=== PATIENT | female | born 1990 | race Caucasian/White ===

== ENCOUNTER 2018-02-15 01:27 | Inpatient (IN) | payer BC, OTHER ==
[~2018-02-15] VITALS: Ht 157.5 cm; Wt 55.8 kg
[2018-02-15] VITALS (37 sets, daily range): BP systolic 96–197; BP diastolic 55–91
[2018-02-15] MEDS ORDERED: D5 LR IV SOLUTION 1,000 ML IV ONE (01:49)
[2018-02-15] MEDS ORDERED: AMPICILLIN 2000 MG INJECTION (IM/IV) ONE (01:49)
[2018-02-15] MEDS ORDERED: NS (IVPB) 50 ML ONE (01:50)
[2018-02-15] MEDS: D5 LR IV SOLUTION 1,000 ML IV SCH ×2 (02:20→09:30)
[2018-02-15] MEDS ORDERED: D5 LR IV SOLUTION 1,000 ML IV SCH ×2 (02:28)
[2018-02-15] MEDS ORDERED: AMPICILLIN INJECTION 2,000 MG in NS (IVPB) 50 ML IV ONE (02:30)
[2018-02-15 02:39] LABS: BASOPHILS % (AUTO) 0 % (0-10); EOSINOPHILS # (AUTO) 0.2 10^3/uL (0.0-0.3); EOSINOPHILS % (AUTO) 2 % (0-10); HEMATOCRIT 36 % (35-52); HEMOGLOBIN 12.3 G/DL (11.5-16.0); LYMPHOCYTES # (AUTO) 2.9 X 10^3 (1.0-4.0); LYMPHOCYTES % (AUTO) 20 % (12-44); MEAN CORPUSCULAR HEMOGLOBIN 30 PG (25-34); MEAN CORPUSCULAR HGB CONC 34 G/DL (32-36); MEAN CORPUSCULAR VOLUME 88 FL (80-99); MEAN PLATELET VOLUME 11.6 FL (7.4-10.4); MONOCYTES # (AUTO) 1.5 X 10^3 (0.0-1.0); MONOCYTES % (AUTO) 10 % (0-12); NEUTROPHILS # (AUTO) 9.8 X 10^3 (1.8-7.8); NEUTROPHILS % (AUTO) 68 % (42-75); PLATELET COUNT 205 10^3/uL (130-400); RED BLOOD COUNT 4.13 10^6/uL (4.35-5.85); RED CELL DISTRIBUTION WIDTH 13.7 % (10.0-14.5); WHITE BLOOD COUNT 14.4 10^3/uL (4.3-11.0)
[2018-02-15] MEDS ORDERED: AMPICILLIN FOR IV USE 1,000 MG in NS (IVPB) 50 ML IV SCH (04:00)
[2018-02-15] MEDS ORDERED: CATHETER FLUSH 10 ML SYR IV SCH ×3 (06:00)
[2018-02-15] MEDS ORDERED: OXYTOCIN/NORMAL SALINE 500 ML IV ONE (06:05)
[2018-02-15] MEDS ORDERED: OXYTOCIN/NORMAL SALINE 500 ML IV SCH ×2 (06:45→14:18)
[2018-02-15] MEDS ORDERED: LACTATED RINGERS 1,000 ML IV ONE (07:27)
--- NOTE | 2018-02-15 07:33 | History & Physical ---
History and Physical Date Seen by Provider: Feb 15, 2018 Time Seen by Provider: 07:30 This patient is a 27-year-old A1 white female with an EDC of 831 18 37-5/ 7 weeks gestation. She was seen in clinic yesterday found cervix 47 Ms. dilated 90 percent effaced and +1 station. She back in [place] last evening around 11 p.m. She decided to labor and delivery about 1 a.m. She was found to be 5 cm and [place] with regularity. She denies rupture membranes or bleeding history is significant for having strep in a urine culture during this . She was started on ampicillin for GBS prophylaxis. Patient now admitted for labor management. Allergies are none Medications are vitamins and metro-gel acne Medical social and surgical histories are per the antepartum record HEENT exam is normal Neck is supple no lymphadenopathy no thyromegaly Abdomen is gravid soft nontender nondistended Extreme show clubbing cyanosis there is no Homans sign. Pelvic exam now shows a cervix 6 cm dilated 90 percent effaced +1 station vertex presentation with intact membranes amniotomy is performed with release of a small amount of clear fluid monitor shows occasional contractions and a normal heart rate pattern Laboratory Tests 02/15/18 02:15 Assessment and plan 37-5/7 weeks' gestation in active labor. Patient is admitted antibiotics are initiated for GBS prophylaxis. Anticipation is for vaginal delivery. 37 5/7 weeks' gestation in labor Allergies and Home Medications Allergies Coded Allergies: No Known Drug Allergies (Unverified , 02/15/18) Patient Home Medication List Home Medication List Reviewed: Yes DOMINIC GILBERT MD Feb 15, 2018 7:33 am
[2018-02-15] MEDS ORDERED: SUFENTA 0.6MCG/ML BUPIVA 0.125 100 ML ONE (07:55)
[2018-02-15] MEDS ORDERED: LACTATED RINGERS 1,000 ML IV SCH (08:29)
[2018-02-15] MEDS ORDERED: METOCLOPRAMIDE INJ 10 MG/2 ML (REGLAN) IV PRN (08:30)
[2018-02-15] MEDS ORDERED: diphenhydrAMINE 50 MG/ML INJ (BENADRYL) IV PRN (08:30)
[2018-02-15] MEDS ORDERED: NALOXONE 0.4 MG/ML 1 ML (NARCAN) VIAL IV PRN ×2 (08:30)
[2018-02-15] MEDS ORDERED: ONDANSETRON 4 MG/2 ML (SDV) Z0FRAN IV PRN (08:30)
[2018-02-15] MEDS ORDERED: EPIDURAL (SUFENTA 0.6MCG/ML BUPIVA 0.125%) 100 ML BAG EPI SCH (08:30)
[2018-02-15] MEDS ORDERED: LIDOCAINE/EPI 2% 1:200,00 (XYLOCAINE) 10 ML VIAL ONE (11:51)
[2018-02-15] MEDS ORDERED: oxyCODONE/APAP 5/325MG (PERCOCET 5) TABLET PO PRN (14:30)
[2018-02-15] MEDS ORDERED: ONDANSETRON 4 MG/2 ML (SDV) Z0FRAN IVP PRN (14:30)
[2018-02-15] MEDS ORDERED: TETANUS,DIPTH,PERTUSS P/F (BOOSTRIX) 0.5 ML VIAL IM ONE (14:30)
[2018-02-15] MEDS ORDERED: MEASLES,MUMPS,RUBELLA 1 EA INJ SC ONE (14:30)
[2018-02-15] MEDS ORDERED: BENZOCAINE/MENTHOL (DERMOPLAST) 56 ML CAN TP PRN (14:30)
[2018-02-15] MEDS: KETOROLAC 30 MG/ML VIAL IV SCH ×2 (15:30→21:30)
[2018-02-15] MEDS ORDERED: WITCH HAZEL(TUCKS) 40 EA JAR ONE (19:37)
[2018-02-15] MEDS: DOCUSATE SODIUM 100 MG (COLACE) CAP PO SCH (21:30)
--- NOTE | 2018-02-15 22:26 | OPERATIVE REPORT ---
DATE OF SERVICE: 02/15/2018 DELIVERY NOTE The patient delivered by term spontaneous vaginal delivery a viable male with Apgars of 8 and 9 at 1 and 5 minutes respectively. Weight of 6 pounds, time of 12:37 and a cord pH was 7.18. delivered over midline episiotomy that was performed as the baby was pushed to the perineum. Mom could not expel the baby through the perineum. Heart rate was dropping down into the 60s. Episiotomy was performed to shorten the second stage of labor. The baby delivered fairly promptly thereafter. The infant was bulb suctioned on delivery of the head. A double nuchal cord was easily released and then the delivery was completed. was bulb suctioned dried and stimulated. When the cord was relatively pulseless, it was doubly clamped. The father cut the cord, the baby was passed to mom's abdomen. The placenta delivered spontaneously De La Torre. It was normal with a 3-vessel cord. It did have a small accessory lobe. The cervix, vagina, rectum and perineum were examined and found intact, except for the midline episiotomy that was repaired in the usual manner with a single suture of 3-0 Vicryl Rapide. Good hemostasis was achieved. Good reapproximation was achieved. Sponge and needle counts were correct on completion of delivery and the repair. The baby remained in the LDR with the mom, who remained in the LDR for recovery. Blood loss was around 300 mL and again sponge and needle counts were correct. Job ID: [id number] DocumentID: [id number] Dictated Date: 02/15/2018 12:55:49 Brick Shader Date: 02/15/2018 22:25:10 Dictated By: DOMINIC GILBERT MD
[2018-02-16 00:12] VITALS: BP 101/68
[2018-02-16] MEDS ORDERED: IBUPROFEN 800 MG (MOTRIN) TAB PO ONE ×2 (03:21→07:37)
[2018-02-16 03:30] VITALS: BP 102/68
[2018-02-16] MEDS: IBUPROFEN 800 MG (MOTRIN) TAB PO SCH ×4 (03:30→22:10)
--- NOTE | 2018-02-16 07:47 | Anesthesia-Regional Post-Op ---
Regional Patient Condition Mental Status: Alert, Oriented x3 Circulation: Same as Pre-Op Headache: Absent Sensation: Full Recovery Motor Block: Absent Post Op Complications Complications None Follow Up Care/Instructions Patient Instructions None needed. Anesthesia/Patient Condition Patient is doing well, no complaints, stable vital signs, no apparent adverse anesthesia problems. No complications reported per nursing. D/C home per [facility] Criteria: Yes KLARISSA HUNTER CRNA Feb 16, 2018 07:47
--- NOTE | 2018-02-16 07:56 | Progress Note-Standard ---
Standard Progress Note Progress Notes/Assess & Plan Date Seen by Provider: Feb 16, 2018 Time Seen by Provider: 07:55 Progress/Assessment & Plan This patient is without complaint. She is ambulating, voiding, tolerating oral intake well has good pain control. She denies chest pain denies shortness of breath denies nausea vomiting and denies headache. Vital Signs 02/16/18 03:30 Temp 98.4 Pulse 85 Resp 18 B/P (MAP) 102/68 (79) Pulse Ox 99 O2 Delivery Room Air Vital signs are stable. Patient is afebrile. Fundus is firm below the umbilicus and nontender. Extreme show no clubbing cyanosis. There is no Homans sign. There is minimal pretibial pitting edema. Assessment and plan day number 1 status post term spontaneous vaginal delivery doing well. Plan is for routine convalescence care today and discharge home tomorrow DOMINIC GILBERT MD Feb 16, 2018 7:56 am
[2018-02-16] MEDS ORDERED: DOCU100C37 PO (07:58)
[2018-02-16] MEDS ORDERED: OXYC-471 PO (07:58)
[2018-02-16] MEDS ORDERED: IBUP-1780 PO (07:58)
--- NOTE | 2018-02-16 07:59 | Discharge Instructions ---
Discharge Instructions Discharge Medications New, Converted or Re-Newed RX: RX on Chart Patient Instructions Patient Instructions: As directed Return to The Hospital For: As directed Activity & Diet Discharge Diet: No Restrictions Activity as Tolerated: No Orders-Post D/C & Referrals Follow Up Appt: Call to make follow up appt. for patient in 4 to 6 weeks. Activity Per routine post vaginal delivery instructions. Diet as tolerated Patient may shower or tub bathe as desired. DOMINIC GILBERT MD Feb 16, 2018 7:59 am
[2018-02-16 09:00] VITALS: BP 123/83
[2018-02-16] MEDS: DOCUSATE SODIUM 100 MG (COLACE) CAP PO SCH ×2 (09:32→22:10)
[2018-02-16] MEDS ORDERED: TETANUS,DIPTH,PERTUSS P/F (BOOSTRIX) 0.5 ML VIAL IM ONE (09:45)
[2018-02-16 12:30] VITALS: BP 110/78
[2018-02-16 16:00] VITALS: BP 100/66
[2018-02-16 22:10] VITALS: BP 102/72
[2018-02-17 04:27] VITALS: BP 106/70
[2018-02-17] MEDS: IBUPROFEN 800 MG (MOTRIN) TAB PO SCH ×2 (04:27→09:58)
--- NOTE | 2018-02-17 07:49 | Progress Note-Standard ---
Standard Progress Note Progress Notes/Assess & Plan Date Seen by Provider: Feb 17, 2018 Time Seen by Provider: 07:48 Progress/Assessment & Plan This patient is without complaint. She is ambulating, voiding, tolerating oral intake well has good pain control. She denies chest pain denies shortness of breath denies nausea vomiting and denies headache. Vital Signs 02/16/18 03:30 Temp 98.4 Pulse 85 Resp 18 B/P (MAP) 102/68 (79) Pulse Ox 99 O2 Delivery Room Air Vital signs are stable. Patient is afebrile. Fundus is firm below the umbilicus and nontender. Extreme show no clubbing cyanosis. There is no Homans sign. There is minimal pretibial pitting edema. Assessment and plan day number 1 status post term spontaneous vaginal delivery doing well. Plan is for routine convalescence care today and discharge home tomorrow 2017 Patient without complaint. She is ambulating, voiding, tolerating oral intake well has good pain control and is requesting discharge home. Vital Signs 02/17/18 04:27 Temp 98.5 Pulse 110 Resp 18 B/P (MAP) 106/70 (82) Pulse Ox 99 O2 Delivery Room Air Vital signs are stable. Patient is afebrile. Fundus is firm below the umbilicus and nontender. Extremities show no clubbing cyanosis. There is no Homans sign. Assessment and plan day number 2 T term spontaneous vaginal delivery doing well. Plan is to discharge home with follow-up in clinic Final Diagnosis Spontaneous vaginal delivery DOMINIC GILBERT MD Feb 17, 2018 7:49 am
[2018-02-17] MEDS: DOCUSATE SODIUM 100 MG (COLACE) CAP PO SCH (09:28)
[2018-02-17 10:00] VITALS: BP 111/72
== END 2018-02-17 11:05 | disposition home or self-care (01) | DRG 775 ==
LOC: LDRP 01:27 → WSo 01:27 → LDRP 02:10 → WSo 02:10 → LDRP 19:15
PROVIDERS: ADMIT Obstetrics & Gynecology; ATTEND Obstetrics & Gynecology
PROC: 0W8NXZZ Division of Female Perineum, External Approach (ICD-10-PCS; principal; 2018-02-15)
PROC: 10E0XZZ Delivery of Products of Conception, External Approach (ICD-10-PCS; 2018-02-15)
DX: O99.820 Streptococcus B carrier state complicating pregnancy (principal); O69.81X0 Labor and delivery complicated by cord around neck, without compression, not applicable or unspecified; Z3A.37 37 weeks gestation of pregnancy; Z37.0 Single live birth; Z23 Encounter for immunization
CPT/HCPCS: 36415; 85025; 86850; 86900; 86901; 90715; 99212

== ENCOUNTER 2020-12-12 08:43 | Inpatient (IN) | payer BC ==
[~2020-12-12] VITALS: Ht 157.5 cm; Wt 54.7 kg
[2020-12-12] VITALS (48 sets, daily range): BP systolic 79–115; BP diastolic 44–72
[~2020-12-12 08:43] MED LIST: DOCU100C37 PO; IBUP-1780 PO; OXYC1TAB11 PO
[2020-12-12] MEDS ORDERED: AMPICILLIN FOR IV USE 2,000 MG in WATER (STERILE) FOR INJECTION 14.8 ML IV SCH (08:58)
--- NOTE | 2020-12-12 09:21 | History & Physical ---
History and Physical Date Seen by Provider: Dec 12, 2020 Time Seen by Provider: 09:19 This patient is a 30-year-old 3 para 1 female currently at 37 weeks gestation. She has a history of rapid labor with prior delivery at 37 weeks gestation. She has a history of painless labor. She was dilated 3 cm 80% effaced 0 station with complaint of increased pressure similar to her last labor. Her history is also significant for GBS positive culture. She was sent from clinic to labor and delivery for management for early labor. Patient denies rupture membranes or bleeding Allergies are none Medications are vitamins Medical social and surgical history is all per the antepartum record HEENT exam is normal Neck is supple no lymphadenopathy no thyromegaly Abdomen is gravid soft nontender nondistended Extremities show no clubbing or cyanosis. There is no Homans' sign. Pelvic exam shows cervix 3 cm dilated 80% effaced 0 station vertex presentation Assessment and plan term at 37 weeks gestation with prior delivery at 37 weeks and with painless rapid labor and a positive GBS culture. Patient is admitted now for labor management and for prophylactic antibiotics. Anticipation is a vaginal delivery 37 weeks with early labor and GBS positive culture Allergies and Home Medications Allergies Coded Allergies: No Known Drug Allergies (Unverified , 02/15/18) Home Medications Docusate Sodium 100 Mg Capsule, 100 MG PO BID Prescribed by: DOMINIC CASTANO on 02/16/18 0758 Ibuprofen 800 Mg Tablet, 800 MG PO Q6H Prescribed by: DOMINIC CASTANO on 02/16/18 0758 Oxycodone HCl/Acetaminophen 1 Each Tablet, 1 TAB PO Q4H PRN for PAIN-MODERATE Prescribed by: DOMINIC CASTANO on 02/16/18 0758 Patient Home Medication List Home Medication List Reviewed: Yes DOMINIC GILBERT MD Dec 12, 2020 09:21
[2020-12-12 09:30] LABS: BASOPHILS % (AUTO) 0 % (0-10); EOSINOPHILS # (AUTO) 0.2 10^3/uL (0.0-0.3); EOSINOPHILS % (AUTO) 2 % (0-10); HEMATOCRIT 36 % (35-52); LYMPHOCYTES % (AUTO) 15 % (12-44); MEAN CORPUSCULAR HEMOGLOBIN 31 pg (25-34); MEAN CORPUSCULAR HGB CONC 34 g/dL (32-36); MEAN CORPUSCULAR VOLUME 90 fL (80-99); MEAN PLATELET VOLUME 10.5 fL (9.0-12.2); MONOCYTES # (AUTO) 1.1 10^3/uL (0.0-1.0); MONOCYTES % (AUTO) 8 % (0-12); NEUTROPHILS # (AUTO) 9.4 10^3/uL (1.8-7.8); NEUTROPHILS % (AUTO) 73 % (42-75); PLATELET COUNT 216 10^3/uL (130-400)
[2020-12-12] MEDS: D5 LR IV SOLUTION 1,000 ML IV SCH ×2 (09:56→17:50)
[2020-12-12] MEDS ORDERED: IBUP-1780 PO (10:48)
[2020-12-12] MEDS ORDERED: OXYC1TAB11 PO (10:48)
[2020-12-12] MEDS ORDERED: DOCU100C37 PO (10:48)
--- NOTE | 2020-12-12 10:49 | Discharge Inst-Surgical ---
Discharge Inst-Surgical Depart Medication/Instructions New, Converted or Re-Newed RX: RX on Chart Consults/Follow Up Patient Instructions: As directed Orders & Referrals Follow Up Appt: Call to make follow up appt. for patient in 4 weeks. Activity Per routine post vaginal delivery instructions. Please call in RX to patient pharmacy. Diet as tolerated Patient may shower or tub bathe as desired. Activity Activity as Tolerated: No Diet Discharge Diet: No Restrictions DOMINIC GILBERT MD Dec 12, 2020 10:49
[2020-12-12] MEDS ORDERED: OXYTOCIN PRE-MIX DRIP 500 ML IV SCH ×2 (13:45→20:30)
[2020-12-12] MEDS ORDERED: CATHETER FLUSH 10 ML SYR IV SCH (14:00)
[2020-12-12] MEDS: AMPICILLIN FOR IV USE 1,000 MG in WATER (STERILE) FOR INJECTION 7.4 ML IV SCH ×2 (14:29→17:00)
[2020-12-12] MEDS: LACTATED RINGERS 1,000 ML IV SCH ×2 (15:20→20:22)
[2020-12-12] MEDS ORDERED: fentaNYL 2 mcg/ml BUPIVA 0.125 100 ML ONE (15:28)
[2020-12-12] MEDS ORDERED: diphenhydrAMINE 50 MG/ML INJ (BENADRYL) IV PRN (17:00)
[2020-12-12] MEDS ORDERED: METOCLOPRAMIDE INJ 10 MG/2 ML (REGLAN) IV PRN (17:00)
[2020-12-12] MEDS ORDERED: EPIDURAL (fentaNYL 2 MCG/ML BUPIVA 0.125%)100 ML BAG EPI SCH (17:00)
[2020-12-12] MEDS ORDERED: ONDANSETRON 4 MG/2 ML (SDV) Z0FRAN IV PRN (17:00)
[2020-12-12] MEDS ORDERED: NALOXONE 0.4 MG/ML 1 ML (NARCAN) VIAL IV PRN ×2 (17:00)
[2020-12-12] MEDS ORDERED: OXYC1TAB87 PO (17:51)
[2020-12-12] MEDS ORDERED: LIDOCAINE 1% INJ 20 ML 20 ML VIAL ONE (18:34)
[2020-12-12] MEDS ORDERED: LIDOCAINE/EPI 2% 1:200,00 (XYLOCAINE) 20 ML VIAL ONE (18:35)
[2020-12-12] MEDS ORDERED: oxyCODONE/APAP 5/325MG (PERCOCET 5) TABLET PO PRN (20:30)
[2020-12-12] MEDS ORDERED: TETANUS,DIPTH,PERTUSS P/F (BOOSTRIX) 0.5 ML VIAL IM ONE (20:30)
[2020-12-12] MEDS ORDERED: MEASLES,MUMPS,RUBELLA 1 EA INJ SC ONE (20:30)
[2020-12-12] MEDS ORDERED: ONDANSETRON 4 MG/2 ML (SDV) Z0FRAN IVP PRN (20:30)
[2020-12-12] MEDS ORDERED: BENZOCAINE/MENTHOL (DERMOPLAST) 56 ML CAN TP PRN (20:30)
[2020-12-12] MEDS ORDERED: BENZOCAINE/MENTHOL (DERMOPLAST) 56 ML CAN TP ONE (21:02)
[2020-12-12] MEDS ORDERED: KETOROLAC 30 MG/ML VIAL ONE (21:02)
[2020-12-12] MEDS: KETOROLAC 30 MG/ML VIAL IVP SCH (21:13)
[2020-12-13 03:04] VITALS: BP 107/59
[2020-12-13] MEDS: KETOROLAC 30 MG/ML VIAL IVP SCH (03:07)
[2020-12-13 06:45] VITALS: BP 100/64
--- NOTE | 2020-12-13 07:55 | Progress Note ---
Standard Progress Note Progress Notes/Assess & Plan Date Seen by a Provider: Dec 13, 2020 Time Seen by a Provider: 07:54 Progress/Assessment & Plan This patient is without complaint. She is ambulating, voiding, tolerating oral intake well and has good. Pain control Vital Signs 12/13/20 06:45 Temp 37.0 Pulse 80 Resp 18 B/P (MAP) 100/64 (76) Pulse Ox 96 O2 Delivery Room Air Vital signs are stable. Patient is afebrile. Fundus is firm below the umbilicus and nontender. Extremities show no clubbing cyanosis. There is no Homans' sign. Assessment and plan day #1 status post term spontaneous vaginal AB at 37 weeks gestation. Patient is doing well will have routine convalescent care Final Diagnosis 37-week spontaneous vaginal delivery DOMINIC GILBERT MD Dec 13, 2020 07:55
--- NOTE | 2020-12-13 09:24 | Anesthesia-Regional Post-Op ---
Regional Patient Condition Mental Status: Alert, Oriented x3 Circulation: Same as Pre-Op Headache: Absent Sensation: Full Recovery Motor Block: Absent Post Op Complications Complications None Follow Up Care/Instructions Patient Instructions None needed. Anesthesia/Patient Condition Patient is doing well, no complaints, stable vital signs, no apparent adverse anesthesia problems. No complications reported per nursing. BRAD LEE CRNA Dec 13, 2020 09:24
[2020-12-13] MEDS: DOCUSATE SODIUM 100 MG (COLACE) CAP PO SCH ×3 (09:27→21:27)
[2020-12-13 10:58] VITALS: BP 146/62
[2020-12-13] MEDS: IBUPROFEN 800 MG (MOTRIN) TAB PO SCH ×2 (12:46→17:45)
--- NOTE | 2020-12-13 15:11 | OPERATIVE REPORT ---
DATE OF SERVICE: 12/12/2020 DELIVERY NOTE The patient delivered by term spontaneous vaginal delivery a viable male with Apgars of 8 and 9 at 1 and 5 minutes respectively, weight pending at this time. time was 1828. The was bulb suctioned on delivery of the head and again on completion of delivery. The umbilical cord was doubly clamped, father cut the cord, the baby was passed to mom's abdomen. Cord bloods were obtained. The placenta delivered spontaneously De La Torre. It was normal with a 3-vessel cord. There was a first-degree perineal laceration that was repaired with a single suture of 3-0 Vicryl Rapide. The repair was accomplished under epidural analgesia. Sponge and needle counts were correct on completion of delivery and repair. Estimated blood loss was around 200 mL. The patient tolerated the procedure well and remained in the LDR for recovery. The baby remained with the mother. Job ID: [id number] DocumentID: [id number] Dictated Date: 12/13/2020 08:02:35 Technical Staff Assistant Date: 12/13/2020 15:10:55 Dictated By: DOMINIC GILBERT MD
[2020-12-13 16:24] VITALS: BP 105/72
[2020-12-13 23:20] VITALS: BP 103/69
[2020-12-14] MEDS: IBUPROFEN 800 MG (MOTRIN) TAB PO SCH ×2 (00:19→05:27)
[2020-12-14 05:27] VITALS: BP 100/72
[2020-12-14 08:40] VITALS: BP 98/53
[2020-12-14] MEDS: DOCUSATE SODIUM 100 MG (COLACE) CAP PO SCH (08:40)
--- NOTE | 2020-12-14 08:53 | Postpartum Progress Note ---
Note Note Day # 2 Subjective: This is a patient of Dr. Sharp that I am rounding on for him. She delivered on 12/12. Patient is without complaints. Ambulating, voiding. Tolerating a regular diet without nausea or vomiting. Normal lochia. Pain is well controlled with oral pain medications. Objective: Physical Exam: General - Alert and oriented, no apparent distress Abdomen - Soft, appropriately tender to palpation, non-distended, fundus firm at umbilicus Extremities - no edema, negative Izabella's bilaterally Assessment: PPD 2 Plan: Routine care. Encourage breast feeding. Encourage ambulation. Ferrous sulfate supplementation. Plan for discharge today Vitals - Labs Vital Signs - I&O Vital Signs Date Time Temp Pulse Resp B/P (MAP) Pulse Ox O2 Delivery O2 Flow Rate FiO2 12/14/20 05:27 36.8 94 18 100/72 (81) 99 Room Air 12/13/20 23:20 36.4 60 18 103/69 (80) 99 Room Air 12/13/20 16:24 36.3 90 18 105/72 (83) 99 Room Air 12/13/20 10:58 37.1 82 18 146/62 (90) 99 Room Air SHAN VIZCAINO DO Dec 14, 2020 08:53
== END 2020-12-14 11:50 | disposition home or self-care (01) | DRG 807 ==
LOC: LDRP 08:43
PROVIDERS: ADMIT Obstetrics & Gynecology; ATTEND Obstetrics & Gynecology
PROC: 10E0XZZ Delivery of Products of Conception, External Approach (ICD-10-PCS; principal; 2020-12-12)
PROC: 0HQ9XZZ Repair Perineum Skin, External Approach (ICD-10-PCS; 2020-12-12)
DX: O99.824 Streptococcus B carrier state complicating childbirth (principal); Z37.0 Single live birth; Z3A.37 37 weeks gestation of pregnancy; O70.0 First degree perineal laceration during delivery
CPT/HCPCS: 36415; 85025; 86850; 86900; 86901